=== PATIENT | female | born 1945 | race Caucasian/White ===

== ENCOUNTER 2019-06-28 00:57 | Observation (INO) ==
[2019-06-28] MEDS ORDERED: Ondansetron ODT 4 MG TAB.RAPDIS SL PRN (03:10)
[2019-06-28] MEDS ORDERED: Naloxone 0.4 MG/ML INJ IVP PRN (03:10)
[2019-06-28] MEDS ORDERED: *HR* Digoxin 0.125 MG TABLET PO SCH (03:15)
[2019-06-28] MEDS ORDERED: *HR* Dextrose 50 % in Water (Syg) 50 ML SYRINGE IVP PRN (03:20)
[2019-06-28] MEDS ORDERED: Dextrose Gel 15 GM/37.5 ML TUBE PO PRN ×2 (03:20)
[2019-06-28] MEDS ORDERED: D5% in Water 1,000 ML IVC PRN (03:20)
[2019-06-28 05:08] LABS: Hematocrit 35.4 % (35.3-44.9); Hemoglobin 11.9 g/dL (11.5-15.4); Mean Corpuscular HGB Conc 33.6 g/dL (31.6-35.5); Mean Platelet Volume 12.7 fL (9.4-12.4); Platelet Count 147 K/mcL (140-400); Red Blood Count 4.11 M/mcL (3.82-4.97); Red Cell Distribution Width 13.9 % (11.5-14.5); White Blood Count 9.4 K/mcL (4.3-11.1)
[2019-06-28 05:26] LABS: Potassium 3.8 mEq/L (3.5-5.1)
[2019-06-28 05:34] LABS: Mean Corpuscular Volume 86.1 fL (83.0-100.0)
[2019-06-28] MEDS: Levothyroxine 25 MCG TABLET PO SCH (06:35)
[2019-06-28] MEDS ORDERED: Metoprolol 100 MG TABLET PO SCH (09:00)
[2019-06-28] MEDS: Apixaban 5 MG TABLET PO SCH ×2 (09:15→19:49)
[2019-06-28] MEDS: Insulin LISPRO 300 UNITS/3 ML VIAL SQ SCH ×3 (09:15→16:57)
[2019-06-28] MEDS: FLUoxetine 20 MG CAPSULE PO SCH ×2 (09:16→19:51)
[2019-06-28] MEDS: Loratadine 10 MG TABLET PO SCH (09:16)
[2019-06-28] MEDS: Budesonide/Formoterol 160/4.5 1 PUFF INH IH SCH ×2 (11:37→20:31)
[2019-06-28] MEDS ORDERED: Nitroglycerin 0.4 MG TAB.SUBL SL PRN (12:08)
[2019-06-28] MEDS: Nitroglycerin 0.4 MG TAB.SUBL SL ONE ×2 (12:24→13:04)
[2019-06-28] MEDS ORDERED: clonazePAM 1 MG TABLET PO STA (12:44)
[2019-06-28] MEDS ORDERED: GI Cocktail 40 ML EACH PO ONE (12:44)
[2019-06-28] MEDS: cefTRIAXone 1,000 MG in Water for inj. (sterile) 10 ML IVP SCH (12:57)
[2019-06-28] MEDS: clonazePAM 1 MG TABLET PO PRN (19:49)
[2019-06-28] MEDS ORDERED: Insulin LISPRO 300 UNITS/3 ML VIAL SQ SCH (21:00)
[2019-06-29 02:03] LABS: Basophils % 0.3 %; Eosinophils # 0.2 K/mcL (0.0-0.6); Eosinophils % 1.9 %; Hematocrit 36.5 % (35.3-44.9); Hemoglobin 11.4 g/dL (11.5-15.4); Immature Granulocytes % 0.4 % (0-4); Lymphocytes # 1.7 K/mcL (0.6-4.6); Lymphocytes % 21.9 %; Mean Corpuscular HGB Conc 31.2 g/dL (31.6-35.5); Mean Corpuscular Hemoglobin 28.6 pg (28.0-33.3); Mean Corpuscular Volume 91.5 fL (83.0-100.0); Mean Platelet Volume 13.2 fL (9.4-12.4); Monocytes # 0.5 K/mcL (0.0-1.3); Neutrophils # 5.5 K/mcL (1.6-8.9); Platelet Count 127 K/mcL (140-400); Red Blood Count 3.99 M/mcL (3.82-4.97); Segmented Neutrophils % 69.5 %; White Blood Count 7.9 K/mcL (4.3-11.1)
[2019-06-29 02:21] LABS: Calcium 8.5 mg/dL (8.6-10.3); Magnesium 1.7 mg/dL (1.6-2.6); Potassium 4.1 mEq/L (3.5-5.1)
[2019-06-29] MEDS: Levothyroxine 25 MCG TABLET PO SCH (06:38)
[2019-06-29] MEDS: Budesonide/Formoterol 160/4.5 1 PUFF INH IH SCH (07:54)
[2019-06-29] MEDS: Loratadine 10 MG TABLET PO SCH (08:51)
[2019-06-29] MEDS: FLUoxetine 20 MG CAPSULE PO SCH (08:51)
[2019-06-29] MEDS: cefTRIAXone 1,000 MG in Water for inj. (sterile) 10 ML IVP SCH (08:52)
[2019-06-29] MEDS: Insulin LISPRO 300 UNITS/3 ML VIAL SQ SCH ×2 (08:55→12:14)
[2019-06-29] MEDS: clonazePAM 1 MG TABLET PO PRN (08:59)
[2019-06-29] MEDS: Apixaban 5 MG TABLET PO SCH (08:59)
[2019-06-29 11:45] VITALS: BP 143/55
[2019-06-29] MEDS ORDERED: FLU Vac QV 19-20 (6Month+)/PF 0.5 ML SYRINGE IM ONE (12:48)
== END 2019-06-29 14:45 | disposition home or self-care (01) ==
LOC: 2NNU → SUATTDRO 02:04
PROVIDERS: ADMIT Internal Medicine; ATTEND Internal Medicine

== ENCOUNTER 2020-12-29 07:47 | Observation (INO) ==
[2020-12-29] MEDS ORDERED: Naloxone 0.4 MG/ML INJ IVP PRN (11:34)
[2020-12-29] MEDS ORDERED: Ondansetron 4 MG/2 ML VIAL IVP PRN (11:34)
[2020-12-29] MEDS ORDERED: Acetaminophen 325 MG TABLET PO PRN (11:34)
[2020-12-29] MEDS ORDERED: Melatonin 3 MG TABLET PO PRN (11:34)
[2020-12-29] MEDS ORDERED: Ipratropium/Albuterol Neb 3 ML IH PRN (11:37)
[2020-12-29] MEDS ORDERED: *HR* OxyCODONE/APAP 5/325 TABLET PO PRN (11:38)
[2020-12-29] MEDS ORDERED: clonazePAM 1 MG TABLET PO PRN (11:38)
[2020-12-29] MEDS ORDERED: Dextrose Gel 15 GM/37.5 ML TUBE PO PRN ×2 (11:48)
[2020-12-29] MEDS ORDERED: *HR* Dextrose 50 % in Water (Vial) 50 ML VIAL IVP PRN (11:48)
[2020-12-29] MEDS ORDERED: D5% in Water 1,000 ML IVC PRN (11:48)
[2020-12-29 12:55] LABS: Bilirubin,Urine Negative (Negative); Blood,Urine Trace (Negative); Clarity,Urine Clear (Clear); Color,Urine Colorless (Yellow); Glucose,Urine (UA) >=1000 mg/dL (Normal); Ketones,Urine Trace mg/dL (Negative); Leukocyte Esterase,Urine Negative (Negative); Nitrite,Urine Negative (Negative); PH,Urine 6.5 pH Units (5.0-8.0); Protein,Urine Negative (Neg-Trace); Squamous Epithelial Cell,Urine Few per hpf (None-Few); Urobilinogen,Urine Normal (Normal); WBC,Urine 0-3 per hpf (0-3)
[2020-12-29] MEDS: predniSONE 20 MG TABLET PO SCH (12:57)
[2020-12-29] MEDS: Metoprolol 100 MG TABLET PO SCH ×2 (12:57→19:59)
[2020-12-29] MEDS: Insulin LISPRO 300 UNITS/3 ML VIAL SUBQ SCH ×3 (12:58→20:08)
[2020-12-29] MEDS ORDERED: Perflutren Lipid Microsphere 1.3 ML in 0.9 % Sodium Chloride 8.7 ML IVP PRN (13:53)
[2020-12-29] MEDS ORDERED: Nitroglycerin 0.4 MG TAB.SUBL SL PRN (14:07)
[2020-12-29] MEDS: Ipratropium/Albuterol Neb 3 ML IH SCH ×4 (17:32→23:40)
[2020-12-29] MEDS: *HR* Glimepiride 4 MG TABLET PO SCH (17:58)
[2020-12-29 18:17] LABS: Estimated Average Glucose 174 mg/dl; Hemoglobin A1C 7.7 %
[2020-12-29 18:18] LABS: INR 1.3; Prothrombin Time 14.8 Seconds (9.4-12.1)
[2020-12-29 18:29] LABS: Chol/HDL Ratio 3.1 (0-4.9); Magnesium 1.8 mg/dL (1.6-2.6); Phosphorous 2.6 mg/dL (2.7-4.5)
[2020-12-29 18:38] LABS: Troponin I 0.05 ng/mL (< 0.04)
[2020-12-29 18:59] LABS: Thyroid Stimulating Hormone 1.1 mcIU/mL (0.340-5.600)
[2020-12-29] MEDS: traZODone 50 MG TABLET PO SCH (19:58)
[2020-12-29] MEDS: Apixaban 5 MG TABLET PO SCH (19:59)
[2020-12-29] MEDS: Budesonide/Formoterol 80/4.5 1 PUFF INH IH SCH (20:14)
[2020-12-30 03:00] LABS: Basophils % 0.2 %; Eosinophils % 0.1 %; Hematocrit 37.3 % (35.3-44.9); Hemoglobin 12.1 g/dL (11.5-15.4); Immature Granulocytes % 0.8 % (0-4); Lymphocytes # 2.1 K/mcL (0.6-4.6); Lymphocytes % 12.4 %; Mean Corpuscular HGB Conc 32.4 g/dL (31.6-35.5); Mean Corpuscular Hemoglobin 29.2 pg (28.0-33.3); Mean Corpuscular Volume 90.1 fL (83.0-100.0); Mean Platelet Volume 12.1 fL (9.4-12.4); Monocytes # 0.8 K/mcL (0.0-1.3); Monocytes % 4.8 %; Neutrophils # 14.1 K/mcL (1.6-8.9); Platelet Count 190 K/mcL (140-400); Red Blood Count 4.14 M/mcL (3.82-4.97); Red Cell Distribution Width 13.5 % (11.5-14.5); Segmented Neutrophils % 81.7 %; White Blood Count 17.2 K/mcL (4.3-11.1)
[2020-12-30 03:19] LABS: Albumin 3.4 g/dL (3.5-5.7); Albumin/Globulin Ratio 1.1 (1.1-2.2); Bilirubin,Total 0.4 mg/dL (0.3-1.0); Calcium 8.7 mg/dL (8.6-10.3); Phosphorous 4.3 mg/dL (2.7-4.5); Potassium 4.2 mEq/L (3.5-5.1); Total Protein 6.4 g/dL (6.4-8.9)
[2020-12-30] MEDS: Ipratropium/Albuterol Neb 3 ML IH SCH ×6 (04:28→23:23)
[2020-12-30] MEDS: Levothyroxine 25 MCG TABLET PO SCH (05:35)
[2020-12-30] MEDS: Budesonide/Formoterol 80/4.5 1 PUFF INH IH SCH ×2 (07:23→20:07)
[2020-12-30] MEDS: Insulin LISPRO 300 UNITS/3 ML VIAL SUBQ SCH ×4 (08:20→22:13)
[2020-12-30] MEDS: FLUoxetine 20 MG CAPSULE PO SCH (09:32)
[2020-12-30] MEDS: Metoprolol 100 MG TABLET PO SCH ×2 (09:33→22:14)
[2020-12-30] MEDS: predniSONE 20 MG TABLET PO SCH (09:33)
[2020-12-30] MEDS: Apixaban 5 MG TABLET PO SCH ×2 (09:33→22:13)
[2020-12-30] MEDS: Multivit/Ca/Min/Fe/FA 1 TAB TABLET PO SCH (09:33)
[2020-12-30] MEDS: *HR* Glimepiride 4 MG TABLET PO SCH ×2 (09:33→16:18)
[2020-12-30] MEDS: Fluticasone Propionate Nasal 50 MCG/SPRAY BOTTLE NS SCH (09:34)
[2020-12-30] MEDS ORDERED: Insulin DETEMIR 100 UNIT/ML X5UNITS SUBQ SCH (21:00)
[2020-12-30] MEDS: traZODone 50 MG TABLET PO SCH (22:14)
[2020-12-31] MEDS: Ipratropium/Albuterol Neb 3 ML IH SCH ×3 (03:30→11:03)
[2020-12-31 04:28] LABS: Hematocrit 39.9 % (35.3-44.9); Hemoglobin 12.6 g/dL (11.5-15.4); Mean Corpuscular HGB Conc 31.6 g/dL (31.6-35.5); Mean Corpuscular Hemoglobin 28.1 pg (28.0-33.3); Mean Corpuscular Volume 88.9 fL (83.0-100.0); Mean Platelet Volume 11.9 fL (9.4-12.4); Platelet Count 196 K/mcL (140-400); Red Blood Count 4.49 M/mcL (3.82-4.97); Red Cell Distribution Width 13.5 % (11.5-14.5); White Blood Count 15.6 K/mcL (4.3-11.1)
[2020-12-31 04:50] LABS: Calcium 9.3 mg/dL (8.6-10.3)
[2020-12-31] MEDS: Levothyroxine 25 MCG TABLET PO SCH (07:18)
[2020-12-31] MEDS: Budesonide/Formoterol 80/4.5 1 PUFF INH IH SCH (07:21)
[2020-12-31] MEDS: Insulin LISPRO 300 UNITS/3 ML VIAL SUBQ SCH ×2 (07:50→11:31)
[2020-12-31] MEDS: Multivit/Ca/Min/Fe/FA 1 TAB TABLET PO SCH (08:39)
[2020-12-31] MEDS: FLUoxetine 20 MG CAPSULE PO SCH (08:40)
[2020-12-31] MEDS: Metoprolol 100 MG TABLET PO SCH (08:40)
[2020-12-31] MEDS: Apixaban 5 MG TABLET PO SCH (08:40)
[2020-12-31] MEDS: Fluticasone Propionate Nasal 50 MCG/SPRAY BOTTLE NS SCH (08:41)
[2020-12-31] MEDS: predniSONE 20 MG TABLET PO SCH (08:41)
[2020-12-31 11:11] VITALS: BP 142/81; PULSE 74; TEMP 97.9; O2SAT 98
[2020-12-31] MEDS: *HR* Glimepiride 4 MG TABLET PO SCH (11:31)
== END 2020-12-31 12:30 | disposition home or self-care (01) ==
LOC: CDU → SUATTDRO 09:45
PROVIDERS: ADMIT Family Medicine; ATTEND Internal Medicine